=== PATIENT | male | born 1965 | race American Indian/Alaskan Native ===

== ENCOUNTER 2016-06-22 14:31 | Outpatient (CLI) | payer OTHER ==
--- NOTE | 2016-06-23 11:39 | Magnetic Resonance Report ---
MR LOWER EXTREMITY NON-JOINT RIGHT WITHOUT CONTRAST: HISTORY: Right foot pain. TECHNIQUE: Multisequence, multiplanar MRI without IV gadolinium. FINDINGS: No comparison. A marker is placed on the plantar surface of the distal foot beneath metatarsals 2 and 3. No discrete abnormality is appreciated in this area. There is no evidence for bony fracture, inflammation or mass. The bone marrow signal throughout the visualized right foot is within normal limits. There are mild osteoarthritic changes in the midfoot and first metatarsophalangeal joint. No erosive joint pathology. The plantar fascia and plantar musculature demonstrate normal signal. The musculotendinous structures throughout the visualized ankle and foot are normal size and signal. No evidence for tendinosis, tenosynovitis or rupture. The Achilles tendon is within normal limits. IMPRESSION: Mild osteoarthritic changes, as described above. Otherwise, unremarkable noncontrast MR of the right foot. There is no discrete abnormality in the distal foot at the site of the marker.
== END 2016-06-22 14:32 | disposition home or self-care (01) ==
LOC: MRI 14:31
PROVIDERS: ATTEND Podiatrist
DX: M79.671 Pain in right foot (principal)